=== PATIENT | female | born 1990 ===

== ENCOUNTER 2018-11-14 18:03 | Outpatient (REF) | payer MEDICAID, SELFPAY ==
[2018-11-16 09:58] LABS: HIV-1/2 Ag & Ab Screen Negative (NEGAT)
[2018-11-16 13:38] LABS: Chlamydia Result Negative; GC Result Negative; Specimen Description URINE
== END 2018-11-14 18:23 ==
LOC: NCHCN 18:03
PROVIDERS: Visit Provider Registered Nurse
DX: Z11.3 Encounter for screening for infections with a predominantly sexual mode of transmission (principal); Z11.4 Encounter for screening for human immunodeficiency virus [HIV]
CPT/HCPCS: 87389; 87491; 87591